=== PATIENT | female | born 1970 | race Caucasian/White ===

== ENCOUNTER 2018-07-03 05:31 | Day surgery (SDC) | payer OTHER ==
[~2018-07-03 05:31] MED LIST: NEURONTIN300 MG PO; SYNTHROID137 MCG PO
[2018-07-03] MEDS ORDERED: TRAMADOL HCL50 MG PO (08:26)
[2018-07-03] MEDS ORDERED: POLY119PG PO (08:27)
== END 2018-07-03 12:05 | disposition home or self-care (01) ==
LOC: CIR.AMB 05:31
DX: K80.10 Calculus of gallbladder with chronic cholecystitis without obstruction (principal)